=== PATIENT | female | born 1960 | race Caucasian/White ===

== ENCOUNTER 2017-08-11 10:17 | Emergency (ER) | payer MEDICAID, MEDICARE ==
[~2017-08-11] VITALS: Ht 157.5 cm; Wt 90.7 kg
[2017-08-11 10:42] VITALS: BP 126/76
--- NOTE | 2017-08-11 11:30 | RAD ---
Examination: 3 views of the right ankle and right foot History: History of fall 3 weeks back landing on the lateral aspect, pain, swelling Comparison: None available Findings: The alignment of the ankle joint grossly appears unremarkable.. Mild degenerative changes identified in the tarsal joints, metatarsophalangeal joints. There is moderate degenerative changes identified in the first metatarsophalangeal joint. Small bony density identified just lateral to the anterior calcaneus could be old injury or enthesophyte formation. Osseous demineralization limits evaluation. Impression: 1. No obvious acute osseous findings. 2. Small bony density identified just lateral to the anterior calcaneus could be old injury or enthesophyte formation.
--- NOTE | 2017-08-11 11:37 | PHYS DOC ---
Past Medical History Past Medical History: No Pertinent History Additional Past Medical Histor: major depressive disorder Past Surgical History: No Surgical History Alcohol Use: None Drug Use: None Adult General Chief Complaint Chief Complaint: FOOT INJURY PAIN HPI HPI Patient is a 56 year old female presents the ED complaining of right ankle injury 2 hours. Patient states she was getting out of the tub and twisted her right ankle. States she did not fall to the ground. Describes the pain as sharp. Rates the pain as 7/10. Denies head/neck injury, LOC, vision changes, nausea/vomiting, symptoms prior to fall, chest pain or shortness of breath.. Review of Systems Review of Systems Constitutional: Denies fever or chills [] Eyes: Denies change in visual acuity, redness, or eye pain [] HENT: Denies nasal congestion or sore throat [] Respiratory: Denies cough or shortness of breath [] Cardiovascular: No additional information not addressed in HPI [] GI: Denies abdominal pain, nausea, vomiting, bloody stools or diarrhea [] : Denies dysuria or hematuria [] Musculoskeletal: Complains of right ankle pain. Denies back pain. [] Integument: Denies rash or skin lesions [] Neurologic: Denies headache, focal weakness or sensory changes [] Endocrine: Denies polyuria or polydipsia [] All other systems were reviewed and found to be within normal limits, except as documented in this note. Allergies Allergies Allergies Coded Allergies Type Severity Reaction Last Updated Verified No Known Drug Allergies 02/16/14 No Physical Exam Physical Exam Constitutional: Well developed, well nourished, no acute distress, non-toxic appearance. [] HENT: Normocephalic, atraumatic Neck: Normal range of motion, no tenderness, supple, no stridor. [] Skin: Warm, dry, no erythema, no rash. [] Back: No tenderness, no CVA tenderness. [] Extremities: MILD RIGHT ANKLE TENDERNESS/SWELLING, no cyanosis, no clubbing, ROM intact, no edema. [] Neurologic: Alert and oriented X 3, normal motor function, normal sensory function, no focal deficits noted. [] Psychologic: Affect normal, judgement normal, mood normal. [] Current Patient Data Vital Signs Vital Signs Date Time Temp Pulse Resp B/P (MAP) Pulse Ox O2 Delivery O2 Flow Rate FiO2 08/11/17 10:42 98.3 98 18 97 Room Air 98.3 EKG EKG [] Radiology/Procedures Radiology/Procedures PROCEDURE: ANKLE RIGHT 3V; FOOT RIGHT 3V Examination: 3 views of the right ankle and right foot History: History of fall 3 weeks back landing on the lateral aspect, pain, swelling Comparison: None available Findings: The alignment of the ankle joint grossly appears unremarkable.. Mild degenerative changes identified in the tarsal joints, metatarsophalangeal joints. There is moderate degenerative changes identified in the first metatarsophalangeal joint. Small bony density identified just lateral to the anterior calcaneus could be old injury or enthesophyte formation. Osseous demineralization limits evaluation. Impression: 1. No obvious acute osseous findings. 2. Small bony density identified just lateral to the anterior calcaneus could be old injury or enthesophyte formation. [] Course & Med Decision Making Course & Med Decision Making Pertinent Labs and Imaging studies reviewed. (See chart for details) []Patient's pain improved. Discussed imaging findings with patient. Patient able to ambulate without assistance. Discussed follow-up with orthopedics this week if pain continues without improvement. Provided contact information/ education. Discussed reasons to return to the ED. Patient understands and agrees with plan. Dragon Disclaimer Dragon Disclaimer This electronic medical record was generated, in whole or in part, using a voice recognition dictation system. Departure Departure Impression: Primary Impression: Ankle sprain Disposition: 01 HOME, SELF-CARE Condition: IMPROVED Referrals: FATIMAH ABURTO (PCP) Patient Instructions: Ankle Sprain RACHEL HERNANDEZ Aug 11, 2017 11:37
== END 2017-08-11 11:53 | disposition home or self-care (01) ==
LOC: ER 10:17
DX: S93.401A Sprain of unspecified ligament of right ankle, initial encounter (principal); X50.9XXA Other and unspecified overexertion or strenuous movements or postures, initial encounter; Y93.89 Activity, other specified; Y99.8 Other external cause status; Y92.89 Other specified places as the place of occurrence of the external cause
CPT/HCPCS: 73610; 73630; 99284